=== PATIENT | male | born 1980 | race Caucasian/White ===

== ENCOUNTER 2024-08-16 18:20 | Emergency (ER) | payer MEDICAID, OTHER ==
[~2024-08-16] VITALS: Ht 175.3 cm; Wt 108.2 kg
[~2024-08-16 18:20] MED LIST: LISI-892 PO; METF-1211 PO
[2024-08-16 18:22] VITALS: TEMP 99.7
[2024-08-16] MEDS ORDERED: METF-1211 PO ×2 (18:29→21:34)
[2024-08-16] MEDS ORDERED: ATOR20TA PO ×2 (18:29→21:34)
[2024-08-16] MEDS ORDERED: LOSA-382 PO ×2 (18:29→21:34)
[2024-08-16 18:46] LABS: GLUCOMETER DEV NAME(LOC) ER.7; GLUCOSE,POINT OF CARE 293 MG/DL (70-110)
[2024-08-16] MEDS: SODIUM CHLORIDE 0.9% 1,000 ML IV ONE (19:34)
[2024-08-16] MEDS: KETOROLAC TROMETHAMINE 30 MG/ML VIAL IVP ONE (19:35)
[2024-08-16] MEDS: DiphenhydrAMINE HCL 50 MG/ML VIAL IVP ONE (19:36)
[2024-08-16] MEDS: ACETAMINOPHEN 325 MG TABLET PO ONE (19:37)
[2024-08-16 19:40] LABS: BASOPHILS % (AUTO) 1.1 % (0.0-2.0); EOSINOPHILS % (AUTO) 3.8 % (1.0-6.0); HEMATOCRIT 39.6 % (41-53); HEMOGLOBIN 13.5 g/dL (13.5-17.5); LYMPHOCYTES # (AUTO) 2.5 K/uL (1.0-4.8); LYMPHOCYTES % (AUTO) 37.3 % (22.0-44.0); MEAN CORPUSCULAR HEMOGLOBIN 31.8 pg (26.0-34.0); MEAN CORPUSCULAR HGB CONC 34.1 G/dL (31.0-37.0); MEAN CORPUSCULAR VOLUME 93 fL (80-100); MONOCYTES # (AUTO) 0.5 K/uL (0.1-1.0); NEUTROPHILS # (AUTO) 3.4 K/uL (1.8-7.7); NEUTROPHILS % (AUTO) 49.8 % (40.0-70.0); PLATELET COUNT (AUTO) 392 K/uL (150-450); RED BLOOD CELL COUNT(AUTO) 4.25 MIL/uL (4.50-5.90); RED CELL DISTRIBUTION WIDTH 14.6 % (11.5-14.5); WHITE BLOOD COUNT (AUTO) 6.8 K/uL (4.5-11.0)
[2024-08-16] MEDS: PROCHLORPERAZINE EDISYLATE 5 MG/ML 2 ML VIAL IVP ONE (19:43)
[2024-08-16 19:46] LABS: ANION GAP 9 mmol/L (8-16); CALCIUM, TOTAL 9.1 mg/dL (8.8-10.5); CARBON DIOXIDE 29 mmol/L (22-29); CHLORIDE 98 mmol/L (98-107); CREATININE 1.08 mg/dL (0.60-1.30); GLOMERULAR FILTR. RATE CALC > 60 mL/min (>60); GLUCOSE,RANDOM 333 mg/dL (70-110); POTASSIUM 3.8 mmol/L (3.5-5.1); SODIUM SERUM 136 mmol/L (136-145); UREA NITROGEN, BLOOD 18 mg/dL (7-18)
[2024-08-16 20:20] VITALS: BP 123/76; PULSE 67; RESP 16; O2SAT 98
== END 2024-08-16 22:08 | disposition home or self-care (01) ==
LOC: EMS 18:20
DX: G44.209 Tension-type headache, unspecified, not intractable (principal); E11.9 Type 2 diabetes mellitus without complications; I10 Essential (primary) hypertension; Z90.49 Acquired absence of other specified parts of digestive tract; Z88.8 Allergy status to other drugs, medicaments and biological substances
CPT/HCPCS: 99284; 96374; 96375; 96361; 80048; 82962; 85025; 36415; J1200; J1885; J0780; J7030

== ENCOUNTER 2025-01-24 14:39 | Emergency (ER) | payer OTHER ==
[~2025-01-24] VITALS: Ht 170.2 cm; Wt 97.7 kg
[~2025-01-24 14:39] MED LIST changes: +ATOR20TA PO; -LISI-892 PO; +LOSA-382 PO
[2025-01-24 14:46] VITALS: TEMP 98.1
[2025-01-24] MEDS ORDERED: METF-1211 PO (14:53)
[2025-01-24] MEDS: SODIUM CHLORIDE 0.9% 1,000 ML IV ONE (15:58)
[2025-01-24] MEDS: ONDANSETRON HCL 4 MG/2 ML VIAL IVP ONE (16:00)
[2025-01-24] MEDS: FAMOTIDINE 20 MG/2 ML VIAL IVP ONE (16:00)
[2025-01-24] MEDS: KETOROLAC TROMETHAMINE 30 MG/ML VIAL IVP ONE (16:01)
[2025-01-24 16:23] LABS: BASOPHILS % (AUTO) 1.1 % (0.0-2.0); EOSINOPHILS % (AUTO) 0.4 % (1.0-6.0); HEMATOCRIT 48.9 % (41-53); HEMOGLOBIN 16.9 g/dL (13.5-17.5); LYMPHOCYTES # (AUTO) 2.3 K/uL (1.0-4.8); LYMPHOCYTES % (AUTO) 41.6 % (22.0-44.0); MEAN CORPUSCULAR HEMOGLOBIN 32.5 pg (26.0-34.0); MEAN CORPUSCULAR HGB CONC 34.7 G/dL (31.0-37.0); MEAN CORPUSCULAR VOLUME 94 fL (80-100); MONOCYTES # (AUTO) 0.3 K/uL (0.1-1.0); MONOCYTES % (AUTO) 6.3 % (2.0-9.0); NEUTROPHILS # (AUTO) 2.8 K/uL (1.8-7.7); NEUTROPHILS % (AUTO) 50.6 % (40.0-70.0); PLATELET COUNT (AUTO) 208 K/uL (150-450); RED BLOOD CELL COUNT(AUTO) 5.21 MIL/uL (4.50-5.90); RED CELL DISTRIBUTION WIDTH 13.5 % (11.5-14.5); WHITE BLOOD COUNT (AUTO) 5.4 K/uL (4.5-11.0)
[2025-01-24 16:31] LABS: ANION GAP 16 mmol/L (8-16); CALCIUM, TOTAL 9.2 mg/dL (8.8-10.5); CARBON DIOXIDE 22 mmol/L (22-29); CHLORIDE 94 mmol/L (98-107); CREATININE 0.71 mg/dL (0.60-1.30); GLOMERULAR FILTR. RATE CALC > 60 mL/min (>60); GLUCOSE,RANDOM 355 mg/dL (70-110); LIPASE 18 U/L (16-77); POTASSIUM 4.1 mmol/L (3.5-5.1); SODIUM SERUM 132 mmol/L (136-145); UREA NITROGEN, BLOOD 6 mg/dL (7-18)
[2025-01-24 16:37] LABS: ALBUMIN 3.8 g/dL (3.4-5.0); BILIRUBIN,DIRECT 0.2 mg/dL (0.00-0.20); BILIRUBIN,TOTAL 0.4 mg/dL (0.1-1.0); TOTAL PROTEIN, SERUM 8.6 g/dL (6.4-8.2)
[2025-01-24] MEDS ORDERED: ONDA-104 PO (16:56)
[2025-01-24 17:47] VITALS: BP 124/76; PULSE 92; RESP 16; O2SAT 99
== END 2025-01-24 17:55 | disposition home or self-care (01) ==
LOC: EMS 14:45
DX: S09.90XA Unspecified injury of head, initial encounter (principal); R11.2 Nausea with vomiting, unspecified; E11.9 Type 2 diabetes mellitus without complications; I10 Essential (primary) hypertension; Z88.8 Allergy status to other drugs, medicaments and biological substances; W01.0XXA Fall on same level from slipping, tripping and stumbling without subsequent striking against object, initial encounter; Y93.89 Activity, other specified; Y92.89 Other specified places as the place of occurrence of the external cause; Y99.8 Other external cause status
CPT/HCPCS: 99285; 70450; 96374; 96375; 96361; 80048; 80076; 83690; 85025; 36415; 72125; 82962; J1885; J3490; J2405; J7030

== ENCOUNTER 2025-04-22 19:29 | Emergency (ER) | payer OTHER ==
[~2025-04-22] VITALS: Ht 172.7 cm; Wt 89.1 kg
[~2025-04-22 19:29] MED LIST changes: -ATOR20TA PO; -LOSA-382 PO; +ONDA-104 PO
[2025-04-22 19:38] VITALS: BP 147/97; PULSE 114; RESP 19; TEMP 98.6; O2SAT 98
== END 2025-04-22 20:50 | disposition left against medical advice (07) ==
LOC: EMS 19:29
DX: K92.0 Hematemesis (principal); Z53.21 Procedure and treatment not carried out due to patient leaving prior to being seen by health care provider

== ENCOUNTER 2025-06-28 02:18 | Emergency (ER) | payer OTHER ==
[~2025-06-28] VITALS: Ht 167.6 cm; Wt 94.0 kg
[~2025-06-28 02:18] MED LIST changes: +AMOX-457 PO; +INSLAN SQ; +LOSA-381 PO; +OSEL75CA17 PO; +PANT-31 PO
[2025-06-28 02:24] VITALS: TEMP 99.1
[2025-06-28 02:46] LABS: GLUCOMETER DEV NAME(LOC) ER.7; GLUCOSE,POINT OF CARE 202 MG/DL (70-110)
[2025-06-28 03:45] LABS: CALCIUM, TOTAL 9.4 mg/dL (8.8-10.5); CREATININE 0.95 mg/dL (0.60-1.30); GLOMERULAR FILTR. RATE CALC > 60 mL/min (>60); GLUCOSE,RANDOM 185 mg/dL (70-110); SODIUM SERUM 138 mmol/L (136-145); UREA NITROGEN, BLOOD 14 mg/dL (7-18)
[2025-06-28 03:50] LABS: ASPARTATE AMINOTRANSFERASE 39 U/L (15-37); TOTAL PROTEIN, SERUM 9.3 g/dL (6.4-8.2)
[2025-06-28 04:22] LABS: PLATELET COUNT (AUTO) 226 K/uL (150-450); RED BLOOD CELL COUNT(AUTO) 5.64 MIL/uL (4.50-5.90); RED CELL DISTRIBUTION WIDTH 12.9 % (11.5-14.5); WHITE BLOOD COUNT (AUTO) 7.2 K/uL (4.5-11.0)
[2025-06-28] MEDS: SODIUM CHLORIDE 0.9% 1,000 ML IV ONE (04:24)
[2025-06-28] MEDS: METOCLOPRAMIDE HCL 5 MG/ML 2 ML VIAL IVP ONE (04:24)
[2025-06-28] MEDS: FAMOTIDINE 20 MG/2 ML VIAL IVP ONE (04:24)
[2025-06-28] MEDS: ACETAMINOPHEN 325 MG TABLET PO ONE (06:39)
[2025-06-28 06:47] VITALS: BP 141/89; PULSE 100; RESP 18; O2SAT 97
== END 2025-06-28 06:50 | disposition home or self-care (01) ==
LOC: EMS 02:20
DX: F10.129 Alcohol abuse with intoxication, unspecified (principal); R11.2 Nausea with vomiting, unspecified; K20.90 Esophagitis, unspecified without bleeding; E11.9 Type 2 diabetes mellitus without complications; I10 Essential (primary) hypertension; Z98.890 Other specified postprocedural states; Z88.8 Allergy status to other drugs, medicaments and biological substances; Z79.4 Long term (current) use of insulin; Z79.899 Other long term (current) drug therapy; Y90.7 Blood alcohol level of 200-239 mg/100 ml
CPT/HCPCS: 99285; 96374; 76705; 96361; 96375; 80048; 80076; 82962; 83690; 85025; 36415; 74018; 93005; G0480; J3490; J2765; J7030

== ENCOUNTER 2025-07-08 20:43 | Emergency (ER) | payer OTHER ==
[~2025-07-08] VITALS: Ht 172.7 cm; Wt 93.6 kg
[2025-07-08 20:53] VITALS: TEMP 98.4
[2025-07-08 21:20] LABS: PLATELET COUNT (AUTO) 207 K/uL (150-450); RED BLOOD CELL COUNT(AUTO) 4.97 MIL/uL (4.50-5.90); RED CELL DISTRIBUTION WIDTH 13.0 % (11.5-14.5); WHITE BLOOD COUNT (AUTO) 4.0 K/uL (4.5-11.0)
[2025-07-08] MEDS ORDERED: 0.9% SODIUM CHLORIDE 10 ML SYRINGE IVP ONE (21:22)
[2025-07-08] MEDS ORDERED: SODIUM CHLORIDE 0.9% 100 ML ONE (21:22)
[2025-07-08] MEDS ORDERED: IOHEXOL 350 MG/ML 100 ML VIAL ONE (21:22)
[2025-07-08 21:30] LABS: CALCIUM, TOTAL 8.1 mg/dL (8.8-10.5); CREATININE 0.76 mg/dL (0.60-1.30); GLOMERULAR FILTR. RATE CALC > 60 mL/min (>60); GLUCOSE,RANDOM 160 mg/dL (70-110); SODIUM SERUM 136 mmol/L (136-145); UREA NITROGEN, BLOOD 8 mg/dL (7-18)
[2025-07-08 21:34] LABS: ASPARTATE AMINOTRANSFERASE 37 U/L (15-37); CHOL/HDL RATIO 3.9 (4.2-7.3); TOTAL PROTEIN, SERUM 7.6 g/dL (6.4-8.2)
[2025-07-08 21:39] LABS: TROPONIN I-HIGH SENSITIVITY 5 ng/L (<76)
[2025-07-08] MEDS: METOCLOPRAMIDE HCL 5 MG/ML 2 ML VIAL IVP ONE (21:44)
[2025-07-08] MEDS: ACETAMINOPHEN 500 MG TABLET PO ONE (21:44)
[2025-07-08] MEDS ORDERED: KETOROLAC TROMETHAMINE 30 MG/ML VIAL IVP ONE (21:45)
[2025-07-08] MEDS: KETOROLAC TROMETHAMINE 15 MG/ML VIAL IVP ONE (21:49)
[2025-07-08 23:00] VITALS: BP 142/88; PULSE 82; RESP 17; O2SAT 98
[2025-07-08] MEDS: LIDOCAINE 5% TRANSDERMAL PATCH TD ONE (23:32)
== END 2025-07-08 23:34 | disposition home or self-care (01) ==
LOC: EMS 20:43
DX: G43.909 Migraine, unspecified, not intractable, without status migrainosus (principal); F10.129 Alcohol abuse with intoxication, unspecified; I10 Essential (primary) hypertension; E11.9 Type 2 diabetes mellitus without complications; Z79.4 Long term (current) use of insulin; Z88.8 Allergy status to other drugs, medicaments and biological substances; Z79.899 Other long term (current) drug therapy; Y90.2 Blood alcohol level of 40-59 mg/100 ml
CPT/HCPCS: 99285; 70496; 96374; 71045; 96375; 80061; 80053; 82962; 83036; 84484; 85025; 85610; 85730; 36415; 70498; 93005; 70450; J1885; G0480; Q9967; J2765; J7050; 82948

== ENCOUNTER 2025-08-18 10:53 | Inpatient (IN) | payer OTHER ==
[~2025-08-18] VITALS: Ht 167.6 cm; Wt 90.9 kg
[2025-08-18 11:16] LABS: GLUCOMETER DEV NAME(LOC) ERT.7; GLUCOSE,POINT OF CARE 187 MG/DL (70-110)
[2025-08-18 11:24] LABS: PLATELET COUNT (AUTO) 242 K/uL (150-450); RED BLOOD CELL COUNT(AUTO) 5.49 MIL/uL (4.50-5.90); RED CELL DISTRIBUTION WIDTH 12.9 % (11.5-14.5); WHITE BLOOD COUNT (AUTO) 10.3 K/uL (4.5-11.0)
[2025-08-18 11:37] LABS: CALCIUM, TOTAL 8.6 mg/dL (8.8-10.5); CREATININE 0.86 mg/dL (0.60-1.30); GLOMERULAR FILTR. RATE CALC > 60 mL/min (>60); GLUCOSE,RANDOM 160 mg/dL (70-110); SODIUM SERUM 131 mmol/L (136-145); UREA NITROGEN, BLOOD 11 mg/dL (7-18)
[2025-08-18 11:43] LABS: ASPARTATE AMINOTRANSFERASE 142.0 U/L (15-37); TOTAL PROTEIN, SERUM 8.1 g/dL (6.4-8.2)
[2025-08-18 12:17] LABS: APPEARANCE,URINE CLEAR (CLEAR); GLUCOSE, URINE (UA) NEGATIVE (NEGATIVE); LEUKOCYTE ESTERASE ,URINE NEGATIVE (NEGATIVE); NITRATE,URINE NEGATIVE (NEGATIVE); OCCULT BLOOD,URINE NEGATIVE (NEGATIVE); SPECIFIC GRAVITIY, URINE 1.004 (1.003-1.030)
[2025-08-18] MEDS: PANTOPRAZOLE SODIUM 40 MG/VIAL IVP ONE (12:31)
[2025-08-18] MEDS ORDERED: LORazepam 2 MG/ML VIAL IVP PRN (13:00)
[2025-08-18] MEDS ORDERED: DEXTROSE 50%-WATER 25 GM/50 ML SYRINGE IVP PRN (13:00)
[2025-08-18] MEDS ORDERED: ONDANSETRON HCL 4 MG/2 ML VIAL IVP PRN (13:00)
[2025-08-18] MEDS: SODIUM CHLORIDE 0.9% 1,000 ML IV ONE (13:28)
[2025-08-18] MEDS: ACETAMINOPHEN 325 MG TABLET PO PRN (13:28)
[2025-08-18 16:36] VITALS: BP 160/104; PULSE 96; RESP 18; TEMP 98.6; O2SAT 100
[2025-08-18 18:41] LABS: GLUCOMETER DEV NAME(LOC) 6S.2; GLUCOSE,POINT OF CARE 155 MG/DL (70-110)
[2025-08-18] MEDS: INSULIN LISPRO 100 UNITS/ML SQ PRN (19:00)
[2025-08-18 19:45] VITALS: BP 177/107; PULSE 77; RESP 18; TEMP 98.2; O2SAT 100
[2025-08-18] MEDS: PANTOPRAZOLE SODIUM 40 MG/VIAL IVP SCH (20:16)
[2025-08-18] MEDS: LOSARTAN POTASSIUM 25 MG TABLET PO SCH (20:16)
[2025-08-18] MEDS: DOCUSATE SODIUM 100 MG CAPSULE PO SCH (20:16)
[2025-08-18 20:55] LABS: GLUCOMETER DEV NAME(LOC) 4E.2; GLUCOSE,POINT OF CARE 135 MG/DL (70-110)
[2025-08-19 04:59] VITALS: BP 155/99; PULSE 71; RESP 17; TEMP 98.1; O2SAT 96
[2025-08-19 06:49] LABS: PLATELET COUNT (AUTO) 188 K/uL (150-450); RED BLOOD CELL COUNT(AUTO) 4.99 MIL/uL (4.50-5.90); RED CELL DISTRIBUTION WIDTH 13.0 % (11.5-14.5); WHITE BLOOD COUNT (AUTO) 6.0 K/uL (4.5-11.0)
[2025-08-19 07:45] VITALS: BP 129/78; PULSE 76; RESP 17; TEMP 98.1; O2SAT 99
[2025-08-19] MEDS: MULTIVITAMINS WITH MINERALS, THERAPEUTIC TABLET PO SCH (08:15)
[2025-08-19 11:55] LABS: GLUCOMETER DEV NAME(LOC) 6S.2; GLUCOSE,POINT OF CARE 162 MG/DL (70-110)
[2025-08-19 13:56] LABS: GLUCOMETER DEV NAME(LOC) 4E.2; GLUCOSE,POINT OF CARE 142 MG/DL (70-110)
[2025-08-19 15:57] VITALS: BP 131/89; PULSE 72; RESP 16; TEMP 98.2; O2SAT 99
[2025-08-19 19:24] LABS: PH,URINE DRUG SCREEN 7.5 (5.0-8.0)
[2025-08-19 19:31] LABS: ALCOHOL, URINE DRUG SCREEN NEGATIVE (NEGATIVE); AMPHET/METH SCREEN,URINE NEGATIVE (NEGATIVE); BARBITURATE SCREEN, URINE NEGATIVE (NEGATIVE); CANNABINOID SCREEN,URINE NEGATIVE (NEGATIVE); COCAINE SCREEN,URINE NEGATIVE (NEGATIVE); METHADONE SCREEN, URINE NEGATIVE (NEGATIVE)
[2025-08-19 20:00] VITALS: BP 132/91; PULSE 79; RESP 18; TEMP 98.1; O2SAT 99
[2025-08-19 23:11] LABS: GLUCOMETER DEV NAME(LOC) 6S.2; GLUCOSE,POINT OF CARE 127 MG/DL (70-110)
[2025-08-19 23:11] LABS: GLUCOMETER DEV NAME(LOC) 6S.2; GLUCOSE,POINT OF CARE 119 MG/DL (70-110)
[2025-08-20 03:07] LABS: HEPATITIS C AB (EIA) Non Reactive (Non Reactive)
[2025-08-20 04:00] VITALS: BP 128/81; PULSE 80; RESP 18; TEMP 98; O2SAT 99
[2025-08-20 06:11] LABS: GLUCOMETER DEV NAME(LOC) 6S.2; GLUCOSE,POINT OF CARE 141 MG/DL (70-110)
[2025-08-20 09:26] VITALS: BP 138/100; PULSE 76; RESP 18; TEMP 98.1; O2SAT 97
[2025-08-21 01:01] LABS: GLUCOMETER DEV NAME(LOC) 4E.2; GLUCOSE,POINT OF CARE 149 MG/DL (70-110)
== END 2025-08-20 14:05 | disposition home or self-care (01) | DRG 280 ==
LOC: EMS 10:53 → EDH 12:58 → 6S 16:20
PROVIDERS: ADMIT Internal Medicine; ATTEND Internal Medicine
DX: K70.9 Alcoholic liver disease, unspecified (principal); K92.0 Hematemesis; E87.1 Hypo-osmolality and hyponatremia; F10.239 Alcohol dependence with withdrawal, unspecified; I10 Essential (primary) hypertension; E11.9 Type 2 diabetes mellitus without complications; Z88.8 Allergy status to other drugs, medicaments and biological substances
CPT/HCPCS: 71045; 80048; 80076; 80307; 81003; 82962; 83690; 85025; 86803; 87340; 93005; 96361; 96374; 99285; J2470; 36415-L1; 36415-TC